=== PATIENT | male | born 1980 | race African-American/Black ===

== ENCOUNTER 2021-05-04 06:00 | Emergency (ER) | payer SELFPAY ==
[~2021-05-04] VITALS: Ht 180.3 cm; Wt 101.0 kg
[2021-05-04 06:21] VITALS: BP 150/89
[2021-05-04] MEDS ORDERED: SODIUM CHLORIDE 0.9% 1,000 ML IV ONE (07:15)
[2021-05-04 07:35] LABS: CLARITY URINE CLEAR (CLEAR); COLOR URINE YELLOW (YELLOW); KETONES URINE 2+ (NEGATIVE); LEUKOCYTE ESTERASE URINE NEGATIVE (NEGATIVE); NITRITE URINE NEGATIVE (NEGATIVE); OCCULT BLOOD URINE NEGATIVE (NEGATIVE); PH URINE 5.5 (4.5-8.0); PROTEIN URINE TRACE (NEGATIVE); SPECIFIC GRAVITY URINE 1.044 (1.005-1.030); UROBILINOGEN URINE 0.2 E.U./dL (0.2-1.0)
[2021-05-04 07:35] LABS: CHLORIDE 98 mEq/L (98-107)
[2021-05-04 07:42] LABS: BASOPHILS % 0.9 % (0.0-2.0); HEMOGLOBIN. 16.1 g/dL (14.0-18.0); LYMPHOCYTES % 37.6 % (20.0-50.0); MEAN CORPUSCULAR HEMOGLOBIN 31.6 pg (28.0-32.0); MEAN CORPUSCULAR VOLUME 90.2 fL (80.0-94.0); MEAN PLATELET VOLUME 10.2 fl (7.4-10.4); MONOCYTES % 5.9 % (2.0-8.0); NEUTROPHILS % 51.6 % (40.0-76.0); PLATELET 180 x1000/uL (130-400); RED CELL DISTRIBUTION WIDTH 12.4 % (11.6-14.6)
[2021-05-04] MEDS ORDERED: METFORMIN HCL 500MG TABLET PO ONE (08:45)
[2021-05-04] MEDS ORDERED: METF500T60 PO (09:24)
== END 2021-05-04 09:42 | disposition home or self-care (01) ==
LOC: ER 06:32
DX: E11.8 Type 2 diabetes mellitus with unspecified complications (principal); J02.9 Acute pharyngitis, unspecified; Z20.822 Contact with and (suspected) exposure to COVID-19; H52.209 Unspecified astigmatism, unspecified eye
CPT/HCPCS: 36415; 71045; 80053; 81003; 85025; 87070; 87430; 87804; 96360; 96361; 99284; C9803; J7030; U0003; U0005